=== PATIENT | male | born 1965 | race Caucasian/White ===

== ENCOUNTER 2020-02-19 14:59 | Emergency (ER) | payer SELFPAY ==
[~2020-02-19] VITALS: Ht 165.1 cm; Wt 95.3 kg
--- NOTE | 2020-02-19 14:59 | NUR ---
Patient BIBA BLS, transferred to bed 5. RN evaluating patient at bedside.
[2020-02-19 15:09] VITALS: BP 153/97
--- NOTE | 2020-02-19 15:11 | NUR ---
BIBA S/P PATIENT FOUND KNOCKING ON DOORS IN [facility] MAKING CONFUSED STATEMENTS. POLICE WAS ON SCENE. PATIENT ADMITS TO USING METH X3 DAYS AGO, BUT DENIES ANY DRUG/ALCOHOL USE TODAY. GCS:15. RESP EVEN AND UNLABORED. VSS. NO NEURO DEFECITS NOTED. 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 PATIENT C/O LEFT RIB PAIN, PT STATES HE FELL EARLIER TODAY ONTO SIDE. DENIES PMH NKDA
[2020-02-19 16:07] LABS: BASOPHILS % (AUTO) 0.6 % (0.0-2.0); EOSINOPHILS % (AUTO) 0.5 % (0.0-4.0); HEMATOCRIT 44.1 % (36-52); HEMOGLOBIN 15.3 g/dL (12.0-18.0); LYMPHOCYTES # (AUTO) 1.8 K/uL (2.0-11.5); LYMPHOCYTES % (AUTO) 25.2 % (20.5-51.1); MEAN CORPUSCULAR HEMOGLOBIN 31 pg (27-31); MEAN CORPUSCULAR HGB CONC 35 g/dL (33-37); MONOCYTES # (AUTO) 0.7 K/uL (0.8-1.0); MONOCYTES % (AUTO) 9.8 % (1.7-9.3); NEUTROPHILS # (AUTO) 4.5 K/uL (1.8-7.7); NEUTROPHILS % (AUTO) 63.9 % (42.2-75.2); PLATELET COUNT (AUTO) 286 K/uL (140-450); RED BLOOD CELL COUNT(AUTO) 5.02 MIL/uL (4.20-6.10); RED CELL DISTRIBUTION WIDTH 13.3 % (11.6-13.7); WHITE BLOOD COUNT (AUTO) 7.1 K/uL (4.8-10.8)
--- NOTE | 2020-02-19 16:21 | NUR ---
PT UNABLE TO PROVIDE URINE AT THIS TIME
[2020-02-19 16:24] LABS: ANION GAP 14.4 (8-16); CHLORIDE 102 mmol/L (98-107); GLUCOSE 106 mg/dL (74-106); POTASSIUM 3.4 mmol/L (3.5-5.1); SODIUM SERUM 138 mmol/L (136-145)
[2020-02-19 16:25] LABS: ALBUMIN 3.7 g/dL (3.4-5.0); ASPARTATE AMINOTRANSFERASE 22 U/L (15-37); CREATININE 0.8 mg/dL (0.6-1.3); GFR ARICAN-AMERICAN 130 mL/min (>90); LIPASE 46 U/L (73-393); TOTAL BILIRUBIN 0.9 mg/dL (0.0-1.0); UREA NITROGEN, BLOOD 8 mg/dL (7-18)
--- NOTE | 2020-02-19 16:44 | NUR ---
URINE OBTAINED AND WALKED TO LAB
[2020-02-19 16:52] LABS: APPEARANCE,URINE CLEAR (CLEAR); BLOOD, URINE TRACE (NEGATIVE); COLOR,URINE YELLOW (YELLOW); PH,URINE 6.5 (5.0-9.0); UGLUCOSE NEGATIVE (NEGATIVE)
[2020-02-19 16:53] LABS: BILIRUBIN,URINE 1+ (NEGATIVE); LEUKOCYTE ESTERASE ,URINE NEGATIVE (NEGATIVE); NITRITE, URINE NEGATIVE (NEGATIVE)
[2020-02-19 16:56] LABS: BARBITURATE, URINE NEGATIVE ng/ml (NEG <=200); BENZODIAZEPINE, URINE NEGATIVE ng/mL (NEG <=200); CANNABINOID, URINE NEGATIVE ng/mL (NEG <=50); COCAINE, URINE NEGATIVE ng/mL (NEG <=300); OPIATE, URINE NEGATIVE ng/mL (NEG <=2000); PHENCYCLIDINE SCREEN,URINE NEGATIVE ng/mL (NEG <=25)
[2020-02-19 17:22] LABS: RBC,URINE 0-5 /HPF (0-5)
[2020-02-19 17:27] VITALS: BP 162/95
--- NOTE | 2020-02-19 17:28 | NUR ---
Patient discharged with v/s stable. Written and verbal after care instructions given and explained. Patient verbalized understanding. Ambulatory with steady gait. All questions addressed prior to discharge. Advised to follow up with PMD.
== END 2020-02-19 17:28 | disposition home or self-care (01) ==
LOC: MED 14:59
DX: F15.10 Other stimulant abuse, uncomplicated (principal); F22 Delusional disorders; I10 Essential (primary) hypertension; F17.210 Nicotine dependence, cigarettes, uncomplicated
CPT/HCPCS: 36415; 80053; 80305; 81001; 83690; 85025; 87086; 93005; 99284; G0482

== ENCOUNTER 2021-05-23 09:05 | Emergency (ER) | payer SELFPAY ==
[~2021-05-23] VITALS: Ht 165.1 cm; Wt 95.3 kg
[2021-05-23 09:18] VITALS: BP 121/55
[2021-05-23] MEDS ORDERED: ACETAMINOPHEN EXTRA STRENGTH 500 MG TAB PO ONE (09:30)
[2021-05-23] MEDS ORDERED: KETOROLAC 30 MG/ML VIAL IM ONE (09:30)
[2021-05-23] MEDS ORDERED: HYDROcodone/APAP 5/325 MG 1 TAB TAB PO ONE (09:30)
--- NOTE | 2021-05-23 09:30 | NUR ---
C/O LOWER BACK PAIN S/P INJURY X 6 DAYS. PMH: DENIES
[2021-05-23] MEDS ORDERED: ACET-10509 PO (11:12)
[2021-05-23 11:17] VITALS: BP 154/66
--- NOTE | 2021-05-23 11:23 | NUR ---
Patient discharged with v/s stable. Written and verbal after care instructions given and explained. Patient alert, oriented and verbalized understanding of instructions. Ambulatory with steady gait. All questions addressed prior to discharge. ID band removed. Patient advised to follow up with PMD. Rx of ACETAMMINOPHEN TAB given. Patient educated on indication of medication including possible reaction and side effects. Opportunity to ask questions provided and answered.
== END 2021-05-23 11:21 | disposition home or self-care (01) ==
LOC: MED 09:05
DX: M54.59 Other low back pain (principal); I10 Essential (primary) hypertension
CPT/HCPCS: 72170; 96372; 99283; J1885